=== PATIENT | male | born 1970 | race Caucasian/White ===

== ENCOUNTER 2020-08-24 11:32 | Outpatient (CLI) | payer OTHER, BC, SELFPAY ==
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
== END 2020-08-24 11:33 | disposition home or self-care (01) ==
LOC: ANHIMG 11:36
PROVIDERS: PCP Internal Medicine; Visit Provider Physician Assistant
DX: M54.2 Cervicalgia (principal); M47.896 Other spondylosis, lumbar region
CPT/HCPCS: 72050; 72114

== ENCOUNTER 2021-12-06 11:49 | Emergency (ER) | payer BC, SELFPAY ==
--- NOTE | ~2021-12-06 | XR_ITS ---
XR toe 5th LT min 2V DATE: 12/06/2021 14:45 INDICATION: Laceration one week ago. Rule out foreign body or fracture or subcutaneous emphysema TECHNIQUE: 3 views of fifth toe COMPARISON: None FINDINGS: Diffuse middle and distal phalanges. No recent fracture or dislocation, periosteal reaction or bone destruction. No subcutaneous emphysema or radiopaque foreign body is detected. IMPRESSION: Negative Reviewed, dictated and finalized at location B. IMPRESSION: Negative
[2021-12-06 11:57] VITALS: BP 170/96; PULSE 91; RESP 14; TEMP 36.6; O2SAT 100
--- NOTE | 2021-12-06 15:00 | ED.WOUNDLAC ---
HPI - Wound/Laceration General Chief Complaint: Wound/Laceration <Sheree Kessler PA-C - Last Filed: 12/06/21 20:14> Stated Complaint: foot laceration on dog kennel 1 week ago <JUANI Goldstein Last Filed: 12/06/21 20:14> Time Seen by Provider: 12/06/21 13:34 <JUANI Goldstein Last Filed: 12/06/21 20:14> Source: patient <JUANI Goldstein Last Filed: 12/06/21 20:14> Mode of arrival: ambulatory <JUANI Goldstein Last Filed: 12/06/21 20:14> Limitations: no limitations <JUANI Goldstein Last Filed: 12/06/21 20:14> History of Present Illness HPI narrative: Patient is a 51-year-old male who presents the ED with report of wound to his left fifth toe. Patient reports he sustained a laceration to the plantar crease of his L 5th toe after stepping on a metal dog crate 1 week ago. He was not evaluated at that time. He presents today as he is concerned the laceration is not healing properly. He has been keeping the wound clean and dry and wrapping it with gauze during the day. Denies any pain to toe. No drainage from wound. No fever, chills, numbness, tingling. No other injuries. <JUANI Goldstein Last Filed: 12/06/21 20:14> Related Data Allergies/Adverse Reactions: Allergies Allergy/AdvReac Type Severity Reaction Status Date / Time amoxicillin [From Augmentin] Allergy Mild unk Verified 12/06/21 11:59 clavulanic acid Allergy Mild unk Verified 12/06/21 11:59 [From Augmentin] <JUANI Goldstein Last Filed: 12/06/21 20:14> Review of Systems Review of Systems: CONSTITUTIONAL: Denies fever, chills, or sweats. SKIN: Reports laceration to L 5th toe plantar crease. Denies drainage. MUSCULOSKELETAL: Denies toe pain. NEUROLOGIC: Denies numbness, tingling, or weakness. <Sheree Kessler PA-C - Last Filed: 12/06/21 20:14> All systems reviewed & are unremarkable except as noted in HPI and below <Sheree Kessler PA-C - Last Filed: 12/06/21 20:14> PMFSH Past Medical History Medical History: Medical History COPD (chronic obstructive pulmonary disease) Depression Gastro-esophageal reflux disease without esophagitis Hyperlipidemia Psoriasis, unspecified <Sheree Kessler PA-C - Last Filed: 12/06/21 20:14> Surgical History Surgical History: Surgical History History of colonoscopy <Sheree Kessler PA-C - Last Filed: 12/06/21 20:14> Family History Family History: Family History Grandparent Family history of alcoholism Mother Family history of chronic obstructive pulmonary disease <Sheree Kessler PA-C - Last Filed: 12/06/21 20:14> Social History Social History: Social History Smoking packs per day: 0.5 Smoking cigarettes per day: 10.0 Years smoked: 32 Smoking pack-years: 16.00 Tobacco type: cigarettes Second hand tobacco smoke exposure: No Alcohol intake: current Substance use type: marijuana <Sheree Kessler PA-C - Last Filed: 12/06/21 20:14> Exam Narrative: GENERAL: Well appearing, well-nourished, non-toxic, in no acute distress. HEAD: Normocephalic, atraumatic. NECK: Supple. No adenopathy, no masses. RESPIRATORY: Airway patent, respirations nonlabored. CARDIOVASCULAR: Regular rate and rhythm without murmurs, rubs, or gallops. Pedal pulses 2+ and equal bilaterally. ABDOMINAL: Soft, nontender, nondistended, no hepatosplenomegaly. Normoactive BS. MUSCULOSKELETAL: Moves all extremities. Strength/ROM intact. Healing 1cm laceration to plantar crease of L 5th digit, no active bleeding. No drainage. Minimal surrounding erythema. No significant warmth. SKIN: Warm, dry, normal color. No rashes. NEURO: A&O X3. Speech clear. Cranial nerves II-XII grossly intact. Steady gait. No ataxic movements.
== END 2021-12-06 15:19 | disposition home or self-care (01) ==
PROVIDERS: Emergency Provider Emergency Medicine; PCP Internal Medicine
DX: S91.115A Laceration without foreign body of left lesser toe(s) without damage to nail, initial encounter (principal); J44.9 Chronic obstructive pulmonary disease, unspecified; K21.9 Gastro-esophageal reflux disease without esophagitis; E78.5 Hyperlipidemia, unspecified; F17.210 Nicotine dependence, cigarettes, uncomplicated; W26.8XXA Contact with other sharp object(s), not elsewhere classified, initial encounter
CPT/HCPCS: 73660; 99283

== ENCOUNTER 2022-11-11 11:33 | Observation (INO) | payer BC, SELFPAY ==
--- NOTE | ~2022-11-11 | CT_ITS ---
EXAMINATION: CT abdomen pelvis w con DATE: 11/11/2022 12:37 INDICATION: Left lower quadrant abdominal pain TECHNIQUE: Computed tomography (CT) of the abdomen and pelvis was performed with 100 mL Omnipaque-350 intravenous contrast. Automated exposure control and iterative reconstruction technique were employe d. The dose-length product was 246.41 mGy-cm. COMPARISON: None FINDINGS: Lung bases are clear. Heart size is normal. No pericardial or pleural effusion. Liver, gallbladder, s pleen, pancreas, bilateral adrenal glands and kidneys are normal. 2.7 cm gas and fluid-filled duodena l diverticulum arising from the third portion of the duodenum. There is mild wall thickening in the d istal colon consistent with colitis. In addition there are few diverticula along the sigmoid colon wi thout focal surrounding from trace stranding to suggest diverticulitis. Small bowel and appendix are normal. There is calcified atherosclerosis without hemodynamically significant stenosis of the aorta and many of the other arteries. Bladder is normal. No free intraperitoneal gas or fluid. No pathologi heather enlarged abdominal or pelvic lymphadenopathy. Mild to moderate lumbar and lower thoracic spondy losis. IMPRESSION: 1. Likely mild distal colitis which could be infectious or inflammatory in etiology. Reviewed, dictated and finalized at location A. IMPRESSION: 1. Likely mild distal colitis which could be infectious or inflammatory in etio logy.
[2022-11-11 11:35] VITALS: BP 160/81; PULSE 99; RESP 20; TEMP 36.6; O2SAT 100
[2022-11-11 11:51] LABS: Basophils Absolute Auto 0.2 K/mm3 (0.0-0.1); Basophils Percent Auto 0.7 % (0.2-1.2); Eosinophils Absolute Auto 0.3 K/mm3 (0-0.3); Eosinophils Percent Auto 1.2 % (0-4.4); Hematocrit 41.1 % (42.0-52.0); Hemoglobin 13.6 g/dL (14.0-18.0); Immature Granulocyte Absolute 0.14 K/mm3 (0.00-0.031); Immature Granulocyte Percent A 0.7 % (0-0.5); Lymphocytes Absolute Auto 1.86 K/mm3 (0.9-3.2); Lymphocytes Percent Auto 8.7 % (18.3-44.2); Mean Corpuscular HGB Conc 33.1 g/dl (32-36); Mean Corpuscular Volume 93.6 fl (80-100); Mean Platelet Volume 8.2 fl (7.4-10.4); Monocytes Absolute Auto 1.8 K/mm3 (0.1-0.6); Monocytes Percent Auto 8.3 % (2.6-8.5); Neutrophils Absolute Auto 17.2 K/mm3 (1.3-6.7); Neutrophils Percent Auto 80.4 % (45.5-73.1); Platelet Count Result 445 k/mm3 (150-375); Red Blood Count 4.39 M/mm3 (4.6-6.20); Red Cell Distribution Width 13.4 % (11.5-14.5); White Blood Count 21.4 K/mm3 (4.5-10.0)
[2022-11-11 12:02] LABS: Alanine Aminotransferase 20 U/L (6-50); Albumin Level 3.8 g/dL (3.5-5.1); Alkaline Phosphatase 128 U/L (38-126); Anion Gap 2 mmol/L (8-16); Aspartate Amino Transferase 24 U/L (17-59); Bilirubin,Total 0.6 mg/dL (0.2-1.3); Blood Urea Nitrogen 6 mg/dL (9-20); Calcium 8.6 mg/dL (8.4-10.2); Carbon Dioxide 32 mmol/L (22-30); Chloride 100 mmol/L (98-107); Estimated CRCL calculation 89 ml/min; Estimated Glomerular Filt Rate > 60; Glucose 97 mg/dL (65-110); Lipase 40 U/L (23-300); Potassium 3.8 mmol/L (3.4-5.0); Sodium 134 mmol/L (137-145)
--- NOTE | 2022-11-11 12:21 | ED.ABDPAIN ---
HPI - Abdominal Pain General Chief Complaint: Abdominal Pain Stated Complaint: Abdomen pain Time Seen by Provider: 11/11/22 12:01 History of Present Illness HPI narrative: 52-year-old male presents to the emergency room for evaluation of abdominal pain. He reports that the pain is across his lower abdomen and has been intermittent. He has had softer than normal stools for the past 2 days. He has been having abdominal pain for the past 2 days as well. Denies having any nausea or vomiting. No fever or chills. Denies having any chest pain or shortness of breath. He denies any previous abdominal surgeries. No history of diverticulitis. Last colonoscopy was 5 years ago and was normal. Related Data Allergies Allergy/AdvReac Type Severity Reaction Status Date / Time amoxicillin [From Augmentin] Allergy Mild unk Verified 11/11/22 13:10 clavulanic acid Allergy Mild unk Verified 11/11/22 13:10 [From Augmentin] Review of Systems Review of Systems: CONSTITUTIONAL: Denies fever, chills, or sweats. EYES: Denies visual changes, redness, or discharge. ENT: Denies rhinorrhea, congestion, sore throat, or otalgia. CARDIOVASCULAR: Denies chest pain, palpitations, or edema. RESPIRATORY: Denies cough or dyspnea. GASTROINTESTINAL: As per HPI GENITOURINARY: Denies dysuria or hematuria. SKIN: Denies rash or itching. MUSCULOSKELETAL: Denies back pain, joint pain, or myalgia. NEUROLOGIC: Denies headache, numbness, dizziness, or weakness. PSYCHIATRIC: Denies anxiety or depression. [facility] Past Medical History Medical History COPD (chronic obstructive pulmonary disease) Depression Gastro-esophageal reflux disease without esophagitis Hyperlipidemia Psoriasis, unspecified Pure hypercholesterolemia Surgical History Surgical History History of colonoscopy Family History Family History Grandparent Family history of alcoholism Mother Family history of chronic obstructive pulmonary disease Social History Social History Smoking packs per day: 0.5 Smoking cigarettes per day: 10.0 Years smoked: 32 Smoking pack-years: 16.00 Smoking status: Current every day smoker Tobacco type: cigarettes Second hand tobacco smoke exposure: No Alcohol intake: current Substance use type: marijuana Lack of Transportation: No Lack of Food: Never True Current Housing: I Have Housing Concerned About Future Housing: No Difficulty Paying Gas/Electric Bills: No Difficulty Paying for Meds: No Currently Unemployed: No Education: Trade/Vocational Certificate Difficulty w/ Childcare or Family Care: No Exam Narrative: GENERAL: Well-appearing, well-nourished, and in no acute distress. HEAD: Normocephalic, atraumatic. EYES: PERRLA and EOMI. NECK: Supple. No adenopathy or masses. No carotid bruits or JVD CHEST: Clear to auscultation. No respiratory distress. No wheezes rales or rhonchi HEART: Regular rate and rhythm. No murmur heard. Normal peripheral pulses. ABDOMEN: Left lower quadrant tenderness. Abdomen soft, no distention. Normal bowel sounds all 4 quads. EXTREMITIES: Normal range of motion. No edema. SKIN: Warm, dry, no rash. NEURO: No focal deficits. Alert and oriented x3. PSYCH: Normal mood and affect. Course Vital Signs Vital signs: Vital Signs Temperature 36.6 C 11/11/22 11:35 Pulse Rate 99 11/11/22 11:35 Respiratory Rate 11/11/22 11:35 Blood Pressure 160/81 H 11/11/22 11:35 Pulse Oximetry 100 11/11/22 11:35 Oxygen Delivery Room Air 11/11/22 11:35 Temperature 36.6 C 11/11/22 11:35 Pulse Rate 99 11/11/22 11:35 Respiratory Rate 11/11/22 11:35 Blood Pressure 160/81 H 11/11/22 11:35 Pulse Oximetry 100 11/11/22 11:35 Oxygen D
[2022-11-11] MEDS: SODIUM CHLORIDE 0.9% IV 1,000 ML 999 ML IV CONT (12:44)
[2022-11-11] MEDS: CIPROFLOXACIN 400 MG/D5W 200ML 200 ML 200 MG IVPB (13:10)
[2022-11-11 13:12] LABS: Lactic Acid Reflex 0.8 mmol/L (0.7-2.0)
[2022-11-11 13:15] LABS: Appearance Urine Cloudy (Clear); Bacteria Urine None Seen /hpf; Bilirubin Urine 1+ (Negative); Blood Urine 2+ (Negative); Color Urine Dark Yellow (Yellow); Glucose Urine UA Negative (Negative); Ketones Urine 1+ mg/dL (Negative); Leukocyte Esterase Ur Trace LEU/UL (Negative); Mucus Urine Present /lpf; Nitrate Urine Negative (Negative); Protein Urine 1+ mg/dL (Negative); Specific Grav Ur 1.022 (1.001-1.035); Squamous Epithelial Cell Urine None seen /hpf (Few); WBC Urine 0-5 /hpf; pH Urine 5.5 (5.0-9.0)
[2022-11-11 13:19] LABS: Add Urine Microscopic? YES
[2022-11-11] MEDS: metroNIDAZOLE 500 MG/ISO 100ML 500 MG/100 ML BAG 100 MG IVPB ×2 (14:20→22:18)
--- NOTE | 2022-11-11 14:46 | ADMGEN ---
This patient, Sedrick Crisostomo, was admitted to Medical Room 346-01. Patient/family oriented to hospital policies and general routines including ID bracelet, bed and alarms, visiting hours, pain management, procedures, bathroom and other care routines, personal items, smoking policy, room service/diet, and visiting hours. Information on how to activate the Rapid Response Team has been discussed. Patient/Family are encouraged to report perceived risks to care and to ask questions if they do not understand what they are told or what they should do.
--- NOTE | 2022-11-11 14:57 | PM.IMHP ---
H&P: HPI History of Present Illness Date/Time: 11/11/22 14:30 Chief Complaint: Abdominal pain. Narrative: This is a very pleasant 52-year-old male smoker with COPD who presented to the emergency department via private vehicle from home for evaluation of abdominal pain. The patient provides the following history. He was wakened from sleep on Monday night with cramping lower abdominal pain. It has been intermittent since that time and seems to occur right before he has the urge to have a bowel movement. He typically has a normal bowel movement once a day however since Monday his stools have been softer than usual and this morning he noticed this a small amount of bright red blood admixed with the stool. He also endorses tenesmus. His appetite has not been great either. He was on antibiotics about 2 weeks ago for a tooth infection and he completed that course of antibiotics without issue or diarrhea. He denies fever, chills, sweats, nausea, and vomiting. No sick contacts or recent travel. No history of diverticulitis or C diff. no personal or family history of inflammatory bowel disease. He was afebrile on arrival with stable vital signs. Pertinent labs include a WBC count of 21.4, hemoglobin 13.6, sodium 130, lactic acid 0.8. CT of the abdomen and pelvis showed mild distal colitis which could be infectious or inflammatory in etiology. Treatments rendered in the ED include one liter of normal saline, 500 mg metronidazole, and 200 mg ciprofloxacin. He is being admitted in this setting for further treatment. Review of Systems Review of Systems: Twelve systems were reviewed and are negative as per HPI. [facility] Past Medical History Medical History (Updated 11/11/22 @ 15:22 by Yeimy Kitchen PA-C) Chronic obstructive pulmonary disease Cigarette smoker Depression Gastro-esophageal reflux disease without esophagitis Hyperlipidemia Psoriasis, unspecified Pure hypercholesterolemia Surgical History Surgical History (Updated 11/11/22 @ 15:03 by Yeimy Kitchen PA-C) History of colonoscopy History of lumbar surgery Family History Family History Grandparent Family history of alcoholism Mother Family history of chronic obstructive pulmonary disease Social History Social History (Updated 11/11/22 @ 15:19 by Yeimy Kitchen PA-C) Social History: Surrogate medical decision maker: Jyoti Kranthi, spouse. Code status: Full code. Smoking packs per day: 0.5 Smoking cigarettes per day: 10.0 Years smoked: 32 Smoking pack-years: 16.00 Smoking status: Current every day smoker Second hand tobacco smoke exposure: No Alcohol intake: current Substance use type: marijuana Lack of Transportation: No Lack of Food: Never True Current Housing: I Have Housing Concerned About Future Housing: No Difficulty Paying Gas/Electric Bills: No Difficulty Paying for Meds: No Currently Unemployed: No Education: Trade/Vocational Certificate Difficulty w/ Childcare or Family Care: No Additional living arrangements comments: Lives with spouse in [place]. Additional occupation/education comments: [employer]. Spiritual care concerns: No Meds Home Medications and Allergies Home Medications Medication Instructions Recorded Confirmed Type meloxicam 15 mg tablet 15 mg PO DAILY #90 tabs 04/01/22 11/11/22 Rx citalopram 20 mg tablet 20 mg PO DAILY #90 tabs 06/28/22 11/11/22 Rx fluticasone 250 mcg-salmeterol 50 1 inh inhalation BID PRN SOB 11/11/22 11/11/22 History mcg/dose blistr powdr for inhalation (Advair Diskus) Allergies Allergy/AdvReac Type Severity Reaction Status Date / Time amoxicillin [From Augmentin] Allergy Mild unk Verified 11/11/22 13:10 Vital Signs Vital Signs - 24 hr 11/11/22 11:35 Temperature 97.9 F Pulse Rate 99 Respiratory Rate 20 Blood Pressure 160/81 H Pulse Oximetry 100 Oxygen Delivery Room Air
[2022-11-11 15:58] VITALS: PULSE 96; O2SAT 96
[2022-11-11 16:00] VITALS: BP 121/69; PULSE 82; RESP 16; TEMP 36.5; O2SAT 99
[2022-11-11] MEDS: levoFLOXacin 750 MG/D5W 150 ML 750 MG/150 ML BAG 100 MG IVPB (16:45)
[2022-11-11 22:00] VITALS: BP 105/65; PULSE 77; RESP 18; TEMP 36.4; O2SAT 98
[2022-11-11] MEDS: CITALOPRAM HYDROBROMIDE 20 MG TABLET PO (22:15)
[2022-11-12 00:09] LABS: Toxigenic C. Diff POSITIVE (NEGATIVE)
--- NOTE | 2022-11-12 00:14 | PC.NURSE ---
CALL RECEIVED FROM SEBASTIAN ABRAMS REGARDING STOOL SAMPLE. STATES PATIENT POSITIVE FOR C-DIFF. PHYSICIAN NOTIFIED OF NEW FINDING. ISOLATION STARTED AT THIS TIME
[2022-11-12 06:00] VITALS: BP 124/70; PULSE 74; RESP 18; TEMP 36.6; O2SAT 98
[2022-11-12] MEDS: VANCOMYCIN ORAL 125 MG/2.5 ML SYRUP PO ×2 (06:03→12:49)
[2022-11-12 06:23] LABS: Hematocrit 38.6 % (42.0-52.0); Hemoglobin 12.9 g/dL (14.0-18.0); Mean Corpuscular HGB Conc 33.4 g/dl (32-36); Mean Corpuscular Hemoglobin 31.2 pg (26-34); Mean Corpuscular Volume 93.2 fl (80-100); Mean Platelet Volume 8.3 fl (7.4-10.4); Platelet Count Result 435 k/mm3 (150-375); Red Blood Count 4.14 M/mm3 (4.6-6.20); Red Cell Distribution Width 13.2 % (11.5-14.5); White Blood Count 12.9 K/mm3 (4.5-10.0)
[2022-11-12 06:32] LABS: Anion Gap 2 mmol/L (8-16); Blood Urea Nitrogen 5 mg/dL (9-20); Carbon Dioxide 29 mmol/L (22-30); Chloride 105 mmol/L (98-107); Estimated CRCL calculation 79 ml/min; Estimated Glomerular Filt Rate > 60; Glucose 96 mg/dL (65-110); Magnesium 2.2 mg/dL (1.6-2.3); Potassium 3.7 mmol/L (3.4-5.0); Sodium 136 mmol/L (137-145)
[2022-11-12 08:00] VITALS: O2SAT 98
--- NOTE | 2022-11-12 12:41 | PM.IMPN ---
Subjective Date/time seen: 11/12/22 12:41 Objective Data Vital Signs Vital Signs: Vital Signs - 24 hr 11/11/22 15:58 11/11/22 16:00 11/11/22 20:00 Temperature 36.5 C Pulse Rate 96 82 Respiratory Rate 16 Blood Pressure 121/69 Pulse Oximetry 96 99 Oxygen Delivery Room Air Room Air Fraction of Inspired Oxygen 11/11/22 22:00 11/12/22 06:00 11/12/22 08:00 Temperature 36.4 C 36.6 C Pulse Rate 77 74 Respiratory Rate 18 18 Blood Pressure 105/65 124/70 Pulse Oximetry 98 98 98 Oxygen Delivery Fraction of Inspired Oxygen 0.21 Intake/Output Intake/Output: Intake & Output 11/09/22 11/10/22 11/11/22 11/12/22 23:59 23:59 23:59 23:59 Intake Total 2180 640 Balance 2180 640 Meds/Results Medications: Active Medications Generic Name Dose Route Start Last Admin Trade Name Freq PRN Reason Stop Dose Admin Acetaminophen 650 mg 11/11/22 15:24 Acetaminophen 325 Mg Tablet PO Q6H PRN Mild Pain (1-3) or Fever Hydrocodone Bitart/Acetaminophen 1 tab 11/11/22 15:26 Hydrocodone/Acetaminophen (*Crx) 5-325 Mg Tablet PO Q6H PRN Pain Rated 4-6 Citalopram Hydrobromide 20 mg 11/11/22 21:00 11/11/22 22:15 Citalopram Hydrobromide 20 Mg Tablet PO 20 mg HS GORDO Administration Vancomycin HCl 125 mg 11/12/22 06:00 11/12/22 06:03 Vancomycin Oral 125 Mg/2.5 Ml Syrup PO 11/22/22 05:59 125 mg Q6HR GORDO Administration Radiology Results: ITS Impressions Abdomen/Pelvis CT 11/11/22 12:48 IMPRESSION: 1. Likely mild distal colitis which could be infectious or inflammatory in etiology. Labs Labs: Laboratory Results - last 24 hr 11/11/22 11/11/22 11/11/22 12:20 12:44 18:31 WBC RBC Hgb Hct MCV MCH MCHC RDW Plt Count MPV Sodium Potassium Chloride Carbon Dioxide Anion Gap BUN Creatinine Estim Creat Clear Calc Estimated GFR Glucose Lactic Acid 0.8 Calcium Magnesium Urine Color Dark yellow Urine Appearance Cloudy H Urine pH 5.5 Ur Specific [place] 1.022 Urine Protein 1+ H Urine Glucose (UA) Negative Urine Ketones 1+ H Ur Blood (Man) 2+ H Urine Nitrate Negative Urine Bilirubin 1+ H Urine Urobilinogen 1.0 Leukocyte Esterase Rfl Trace H Urine RBC 6-10 H Urine WBC 0-5 Ur Squamous Epith Cells None seen Urine Bacteria None seen Urine Casts 3-5 Urine Mucus Present C. difficile (PCR) Positive A* 11/12/22 06:02 WBC 12.9 H RBC 4.14 L Hgb 12.9 L Hct 38.6 L MCV 93.2 MCH 31.2 MCHC 33.4 RDW 13.2 Plt Count 435 H MPV 8.3 Sodium 136 L Potassium 3.7 Chloride 105 Carbon Dioxide 29 Anion Gap 2 L BUN 5 L Creatinine 0.80 Estim Creat Clear Calc 79 Estimated GFR > 60 Glucose 96 Lactic Acid Calcium 8.0 L Magnesium 2.2 Urine Color Urine Appearance Urine pH Ur Specific [place] Urine Protein Urine Glucose (UA) Urine Ketones Ur Blood (Man) Urine Nitrate Urine Bilirubin Urine Urobilinogen Leukocyte Esterase Rfl Urine RBC Urine WBC Ur Squamous Epith Cells Urine Bacteria Urine Casts Urine Mucus C. difficile (PCR)
--- NOTE | 2022-11-12 13:19 | PM.DS ---
DS: Admitting Diagnosis Discharge Date 11/12/22 Admitting Diagnosis infectious colitis left lower abdominal pain COPD, history, controlled DS: Discharge Diagnosis Discharge Diagnosis (1) C. difficile colitis: Code(s): A04.72 - Enterocolitis due to Clostridium difficile, not specified as recurrent Status: Acute Assessment and Plan: WBC improved, VS stable, resolution of bloody stools during hospital stay, stable H&H. C-Diff positive. Stool and blood cultures pending. CT scan showed mild colitis. Initiated oral vancomycin and prescription written. (2) Chronic obstructive pulmonary disease: Qualifiers: COPD type: unspecified COPD Qualified Code(s): J44.9 - Chronic obstructive pulmonary disease, unspecified Code(s): J44.9 - Chronic obstructive pulmonary disease, unspecified Status: Acute Assessment and Plan: No current complaints with breathing/cough/wheeze. Continue home medications and routing PCP follow up (3) Cigarette smoker: Code(s): F17.210 - Nicotine dependence, cigarettes, uncomplicated Status: Acute Assessment and Plan: Discussed smoking cessation and education printed on discharge DS: Summary Hospital Course Hospital Course: This is a 52-year-old male patient relatively healthy who presents to the emergency department with abdominal cramping and abnormal stools following 3 weeks of oral antibiotics for a tooth infection. Patient states the tooth infection went into his jaw and his dentist had to prescribed 2 rounds of antibiotics including dose escalation. He finished antibiotics a few days prior to development of abdominal pain. Patient had abdominal pain for a couple of days before presenting to the emergency department yesterday for evaluation. Patient noted bloody diarhea which is what ultimately prompted him to come to the Emergency Department. Patient initially treated with IV antibiotics with concern for diverticulitis but C Diff sample came back positive. IV antibiotics discontinued and patient was initiated on oral vancomycin. Patient reports that his pain is controlled without the use of pain medication and his bloody diarrhea has resolved. He no longer notices any traces of blood in his stool. He notes that his stool is clear to slimy appearing. Patient reports return of appetite and full consumption of breakfast and lunch today. Patient denies any new symptoms and states that he feels like he is ready to be discharged. Status at Discharge Functional status at discharge: independent ambulation Overall status at discharge: patient is progressing back to baseline Time Spent with Patient Time attestation: Total time spent providing and/or coordinating discharge services: Time spent: Greater than 30 minutes Exam Narrative: General:?Well appearing in good spirits seated upright in a chair conversing with HEENT:?PERRL, EOMI. Sclera anicteric. Moist mucous membranes Neck:??Supple. Respiratory:?Lungs are clear to auscultation bilaterally. No wheezes, rales or rhonchi Cardiovascular:??Regular rate and rhythm with S1-S2. Gastrointestinal:??Abdomen is soft and non tender with hyperactive bowel sounds. No guarding or rebound tenderness. Skin:??Warm and dry.? No rash or lesions on limited exam. Extremities:??No cyanosis, clubbing, or edema. Radial and pedal pulses intact. Neurological:??Alert and oriented. No gross focal deficits to casual conversation. Psychiatric:??Pleasant and cooperative with normal mood and affect.? Judgment and insight intact. DS: Data Data Completed and Pending Completed studies during hospitalization: CT scan abdomen/pelvis, C-Diff testing Pending studies at discharge: stool and blood cultures in process Labs on day of discharge: Labs from last 24 hours 11/12/22 11/11/22 11/11/22 06:02 18:31 12:20 WBC 12.9 H RBC 4.14 L Hgb 12.9 L Hct 38.6 L MCV 93.2 MCH 31.2 MCHC 33.4 RDW 13.2
[2022-11-12 14:00] VITALS: BP 121/67; PULSE 85; RESP 16; TEMP 36.8; O2SAT 100
--- NOTE | 2022-11-15 10:05 | PC.NURSE ---
giardia and stool cx are negative
--- NOTE | 2022-11-18 10:14 | PC.NURSE ---
Blood cx are negative. Cryptospordium is not detected. Dr. Betsy aguilar.
== END 2022-11-12 15:45 | disposition home or self-care (01) ==
LOC: ANHED 12:31 → ANH3MED 14:08
PROVIDERS: Emergency Medicine; Physician Assistant; Admitting Provider Internal Medicine; Emergency Provider Nurse Practitioner Family; PCP Internal Medicine; Visit Provider Nurse Practitioner
DX: A04.72 Enterocolitis due to Clostridium difficile, not specified as recurrent (principal); J44.9 Chronic obstructive pulmonary disease, unspecified; F32.A Depression, unspecified; K57.10 Diverticulosis of small intestine without perforation or abscess without bleeding; K21.9 Gastro-esophageal reflux disease without esophagitis; E78.5 Hyperlipidemia, unspecified; E78.00 Pure hypercholesterolemia, unspecified; D72.829 Elevated white blood cell count, unspecified; L40.9 Psoriasis, unspecified; R63.0 Anorexia; Z68.23 Body mass index [BMI] 23.0-23.9, adult; F17.210 Nicotine dependence, cigarettes, uncomplicated; F10.90 Alcohol use, unspecified, uncomplicated; F12.90 Cannabis use, unspecified, uncomplicated; Z79.51 Long term (current) use of inhaled steroids; Z79.899 Other long term (current) drug therapy
CPT/HCPCS: 36415; 74177; 80048; 80053; 81001; 83605; 83690; 83735; 85025; 85027; 87040; 87045; 87269; 87272; 87427; 87493; 96365; 96367; 96375; 96376; 99285; A9270; G0378; J0744; J1836; J1956; J7030; Q9967

== ENCOUNTER 2025-01-29 00:50 | Day surgery (SDC) | payer BC, SELFPAY ==
[2025-01-21 15:59] VITALS: BMI 24.2
[2025-01-29 07:03] VITALS: BP 140/84; PULSE 92; RESP 14; TEMP 36.5; O2SAT 100
[2025-01-29] MEDS: LACTATED RINGERS 1,000 ML 150 ML IV CONT (07:11)
--- NOTE | 2025-01-29 07:17 | P.PNAN_ITS ---
Anes - Initial Pre Proc Eval Procedure: Operation Date: 01/29/25 08:30 Proposed Procedures p Screening Colonoscopy - Jamar Moreno DO Date/Time: 01/29/25 07:17 Surgeon: Jamar Moreno DO Pre Op Diagnosis: Neoplasm screening Patient Data Age: 54 Gender: M Height: 1.65 m Weight: 60.3 kg Last Vital Signs Temp 36.5 C 01/29/25 07:03 Pulse 92 01/29/25 07:03 Resp 14 01/29/25 07:03 BP 140/84 01/29/25 07:03 Pulse Ox 100 01/29/25 07:03 O2 Del Method Room Air 01/29/25 07:03 Allergies Allergy/AdvReac Type Severity Reaction Status Date / Time amoxicillin (From Augmentin) Allergy Mild unk Verified 01/29/25 07:02 Home Medications ?Medication ?Instructions ?Recorded ?Confirmed ?Type fluticasone 250 mcg-salmeterol 50 1 inh inhalation BID PRN SOB 11/11/22 01/21/25 History mcg/dose blistr powdr for inhalation (Advair Diskus) meloxicam 15 mg tablet See Rx Instructions .Route 0 08/29/24 01/29/25 Rx .COMPLEX #90 tabs citalopram 20 mg tablet 20 mg PO DAILY #90 tabs 05/07/1601/29/25 Rx cyclobenzaprine 5 mg tablet See Rx Instructions PO TID PRN 01/14/25 01/21/25 Rx muscle spasm #60 tabs Patient hx anesthesia problems: none Family hx anesthesia problems: none Results Review: All pre-operative results and documents have been reviewed as part of the pre- operative evaluation. [facility] Past Medical History Medical History (Updated 12/12/24 @ 14:41 by Daniel Matute, [employer] ENGINEER[employer]CHNOLOGIST) BMI 23.0-23.9, adult BMI 24.0-24.9, adult Rash Other specified depressive episodes Other fatigue Hyperkalemia Flank pain Family history of anemia Encounter for screening for malignant neoplasm of prostate Elevated blood pressure reading Cough Allergic contact dermatitis due to plants, except food Chronic obstructive pulmonary disease Hyperlipidemia Gastro-esophageal reflux disease without esophagitis Cigarette smoker Depression Psoriasis, unspecified Pure hypercholesterolemia Surgical History Surgical History History of lumbar surgery History of colonoscopy Family History Family History (Updated 12/12/24 @ 13:48 by JOSÉ MANUEL Berrios) Grandparent Family history of alcoholism Mother Family history of chronic obstructive pulmonary disease Heart disease Father Heart disease Hyperlipidemia Sibling No problems noted. Social History Social History Social History: Surrogate medical decision maker: Jyoti Crisostomo, spouse. Code status: Full code. Smoking packs per day: 1 Smoking cigarettes per day: 20.0 Years smoked: 32 Smoking pack-years: 32.00 Smoking status: Current every day smoker Tobacco type: cigarettes Second hand tobacco smoke exposure: No Alcohol intake: current Drinks per week: 18 Alcohol use details: Beer Substance use: never Substance use type: does not use Do You Feel Safe in your Home?: Yes Lack of Transportation: No Lack of Food: Never True Current Housing: I Have Housing Concerned About Future Housing: No Difficulty Paying Gas/Electric Bills: No Difficulty Paying for Meds: No Currently Unemployed: No Education: Trade/Vocational Certificate Difficulty w/ Childcare or Family Care: No Living arrangements: with family Additional living arrangements comments: Lives with spouse in [place]. Occupation/Education: occupation Additional occupation/education comments: [employer]. Gender identity (if verbalized by the patient): Male Spiritual care concerns: No Anes - Eval Final PreProcedure Day of Procedure 01/29/25 07:17 Patient weight: normal Heart: regular rate and rhythm Lungs: clear to auscultation and normal air movement Airway: Mallampati scale class II Neurological: alert and oriented Last oral intake: >/= 8 hours ASA classification: III Emergent: no Anesthetic plan: proceed Anesthesia type and monitoring: general GIVS and standard monitoring Results Review: All pre-operative results and documents have been reviewed as part of the pre-operative evaluation. Informed Consent: The patient's anesthetic plan and its attendant risks and benefits were discussed with the patient/family/POA. Questions were solicited and answers provided to the satisfaction of the patient/family/POA.
--- NOTE | 2025-01-29 08:26 | P.HP_ITS ---
H&P: HPI History of Present Illness Date/Time: 01/29/25 08:26 Chief Complaint: screening for colorectal cancer Narrative: this is a 54-year-old man who presents for colonoscopy. His last colonoscopy was 10 years ago and was normal. He denies any hematochezia or melena. He denies any family history of colon cancer. He did have C diff colitis about 2 years ago but that has since resolved. Review of Systems Review of Systems: All systems reviewed & are unremarkable except as noted in HPI and below Constitutional: Constitutional: Denies chills, Denies fever(s), Denies headache(s) and Denies weight loss Eyes: Eyes: Denies change in vision ENT: Denies dizziness, Denies headache(s), Denies neck mass and Denies throat swelling Cardiovascular: Cardiovascular: Denies chest pain, Denies lightheadedness and Denies dyspnea Respiratory: Respiratory: Denies cough, Denies dyspnea and Denies wheezing Gastrointestinal: Gastrointestinal: Denies abdominal pain, Denies change in bowel habits, Denies nausea and Denies vomiting Genitourinary: Genitourinary: Denies hematuria and Denies dysuria Musculoskeletal: Musculoskeletal: Reports as per HPI Integumentary/Breasts: Skin/Breast: Reports as per HPI Neurologic: Denies dizziness and Denies headache(s) Allergic/Immunologic: Allergic/Immunologic: Denies throat swelling and Denies wheezing [facility] Past Medical History Medical History (Updated 12/12/24 @ 14:41 by Daniel Matute, HARJEET) BMI 23.0-23.9, adult BMI 24.0-24.9, adult Rash Other specified depressive episodes Other fatigue Hyperkalemia Flank pain Family history of anemia Encounter for screening for malignant neoplasm of prostate Elevated blood pressure reading Cough Allergic contact dermatitis due to plants, except food Chronic obstructive pulmonary disease Hyperlipidemia Gastro-esophageal reflux disease without esophagitis Cigarette smoker Depression Psoriasis, unspecified Pure hypercholesterolemia Surgical History Surgical History History of lumbar surgery History of colonoscopy Family History Family History (Updated 12/12/24 @ 13:48 by JOSÉ MANUEL Berrios) Grandparent Family history of alcoholism Mother Family history of chronic obstructive pulmonary disease Heart disease Father Heart disease Hyperlipidemia Sibling No problems noted. Social History Social History Social History: Surrogate medical decision maker: Jyoti Crisostomo, spouse. Code status: Full code. Smoking packs per day: 1 Smoking cigarettes per day: 20.0 Years smoked: 32 Smoking pack-years: 32.00 Smoking status: Current every day smoker Tobacco type: cigarettes Second hand tobacco smoke exposure: No Alcohol intake: current Drinks per week: 18 Alcohol use details: Beer Substance use: never Substance use type: does not use Do You Feel Safe in your Home?: Yes Lack of Transportation: No Lack of Food: Never True Current Housing: I Have Housing Concerned About Future Housing: No Difficulty Paying Gas/Electric Bills: No Difficulty Paying for Meds: No Currently Unemployed: No Education: Trade/Vocational Certificate Difficulty w/ Childcare or Family Care: No Living arrangements: with family Additional living arrangements comments: Lives with spouse in [place]. Occupation/Education: occupation Additional occupation/education comments: [employer]. Gender identity (if verbalized by the patient): Male Spiritual care concerns: No Meds Home Medications and Allergies Home Medications ?Medication ?Instructions ?Recorded ?Confirmed ?Type fluticasone 250 mcg-salmeterol 50 1 inh inhalation BID PRN SOB 11/11/22 01/21/25 History mcg/dose blistr powdr for inhalation (Advair Diskus) meloxicam 15 mg tablet See Rx Instructions .Route 0 08/29/24 01/29/25 Rx .COMPLEX #90 tabs citalopram 20 mg tablet 20 mg PO DAILY #90 tabs 05/2 07/1601/29/25 Rx cyclobenzaprine 5 mg tablet See Rx Instructions PO TID PRN 01/14/25 01/21/25 Rx muscle spasm #60 tabs Allergies Allergy/AdvReac Type Severity Reaction Status Date / Time amoxicillin (From Augmentin) Allergy Mild unk Verified 01/29/25 07:02 Vital Signs Vital Signs - 24 hr 01/29/25 07:03 Temperature 97.7 F Pulse Rate 92 Respiratory Rate 14 Blood Pressure 140/84 Pulse Oximetry 100 Oxygen Delivery Room Air Exam Const: General: no acute distress and alert Orientation/consciousness: patient oriented x3 HENMT: Head: normocephalic and atraumatic Ears: hearing grossly normal bilaterally Face/Nose/Sinus: Normal nares present Mouth: Yes Normal oral and palatal mucosa present Eyes: Periorbital: periorbital findings normal Sclera: sclerae normal EOM: EOMs intact bilaterally Neck: Neck: normal visual inspection, no lymphadenopathy and trachea midline Chest: Chest palpation & inspection: normal inspection of the chest Resp: Effort & Inspection: normal respiratory effort Auscultation: clear to auscultation bilaterally Cardio: Jugular venous distension: no JVD Rate: regular rate Rhythm: regular rhythm Heart sounds: S1 normal heart sound present and S2 normal heart sound present Peripheral pulses: Peripheral pulses 2+ throughout GI: Inspection: normal to inspection GI Palp: Yes Soft to palpation, No Tenderness to palpation present (GI), No Guarding due to palpation present (GI) and No Rebound tenderness present Percussion: Yes normal to percussion Auscultation: normal bowel sounds : General: Yes no CVA tenderness Back/Spine/Pelvis: Back: no CVA tenderness Neuro: General: patient oriented x3, no focal motor deficits and CN's II-XI intact bilaterally Cognition (Neuro): normal cognition Speech: normal speech Motor exam (neuro): 5/5 motor strength present throughout Extrem: General: capillary refill normal and no clubbing, cyanosis or edema Assessment and Plan Assessment and plan (1) Screening for colon cancer: Code(s): Z12.11 - Encounter for screening for malignant neoplasm of colon Status: Acute Assessment and Plan: I have recommended colonoscopy. I have discussed the procedure, risks, benefits, and alternatives. Questions were answered. Patient is agreeable to proceed.
--- NOTE | 2025-01-29 08:56 | S_PTH ---
PATIENT: Sedrick Crisostomo LOC: [facility] #:[id number] AGE/SX: 54/M ROOM: RE01/29/[address]: Jamar Moreno DO : 1970 BED: DIS: 01/29/2025 SPEC #: [id number] RECD: 01/29/25 10:21 STATUS: ANABELLA REAlejo #: [id number] AMPARO: 01/29/25 08:[address]: Jamar Moreno DEPT: [facility] Surgical RECD BY: Yazmin Aldana ENTERED: 01/29/25 10:21 SP TYPE: Surgical OTHR DR: Daniel Matute APRN Tissues: A - Colon Polypectomy B - Colon Polypectomy Procedures: Hematoxylin and Eosin Stain Gross and Microscopic Level 4
[2025-01-29 09:00] VITALS: BP 113/71; PULSE 87; RESP 22; O2SAT 95
[2025-01-29 09:10] VITALS: BP 127/85; PULSE 88; RESP 21; O2SAT 98
[2025-01-29 09:20] VITALS: BP 134/82; PULSE 78; RESP 16; O2SAT 100
== END 2025-01-29 09:25 | disposition home or self-care (01) ==
PROVIDERS: PCP Nurse Practitioner; Visit Provider Surgery
PROC: 0DJD8ZZ Inspection of Lower Intestinal Tract, Via Natural or Artificial Opening Endoscopic (ICD-10-PCS; CPT 45378; principal; 2025-01-29 08:30)
DX: Z12.11 Encounter for screening for malignant neoplasm of colon (principal); K63.5 Polyp of colon; K57.30 Diverticulosis of large intestine without perforation or abscess without bleeding; K21.9 Gastro-esophageal reflux disease without esophagitis; F32.A Depression, unspecified; E78.00 Pure hypercholesterolemia, unspecified; E87.5 Hyperkalemia; J44.9 Chronic obstructive pulmonary disease, unspecified; R03.0 Elevated blood-pressure reading, without diagnosis of hypertension; F32.89 Other specified depressive episodes; R53.83 Other fatigue; L40.9 Psoriasis, unspecified; F17.210 Nicotine dependence, cigarettes, uncomplicated; Z79.51 Long term (current) use of inhaled steroids; Z98.1 Arthrodesis status; Z82.49 Family history of ischemic heart disease and other diseases of the circulatory system
CPT/HCPCS: 45380; 45385; 88305; J2003; J2704; J7120